=== PATIENT | male | born 1945 | race Caucasian/White ===

== ENCOUNTER 2023-03-12 08:42 | Outpatient (CLI) | payer OTHER, SELFPAY ==
--- NOTE | 2023-03-12 09:14 | USCV_ITS ---
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 Resting TBI of 1.06 on the right side and 0.99 on the left side CONCLUSIONS Normal resting ABIs and TBIs bilaterally. No significant arterial obstruction, based on the above findings Dr Femi Amin MD [facility] (Electronically Signed) Final Date: 13 March 2023 10:01 S
== END 2023-03-12 08:43 | disposition home or self-care (01) ==
PROVIDERS: Visit Provider Nurse Practitioner Family
DX: M79.606 Pain in leg, unspecified (principal)
CPT/HCPCS: 93922